=== PATIENT | male | born 1990 | race Caucasian/White ===

== ENCOUNTER 2017-08-29 10:28 | Inpatient (IN) | payer SELFPAY ==
[2017-08-29 13:29] VITALS: BP 116/67; PULSE 104; RESP 16; TEMP 100; O2SAT 95
[2017-08-29 13:45] VITALS: BP 134/82; PULSE 99; RESP 18; TEMP 98.6; O2SAT 97
[2017-08-29] MEDS ORDERED: SODIUM CHLOR 0.45% 1000 ML INJ 1,000 ML IV SCH (13:45)
[2017-08-29] MEDS ORDERED: RESP: ALBUTEROL 2.5 MG/3 ML NEB (PRN) NEB (13:45)
[2017-08-29] MEDS ORDERED: SODIUM CHLORIDE 0.9% FLUSH 10 ML FLUSH IV FLUSH PRN (13:45)
[2017-08-29 13:48] VITALS: BP 133/70; PULSE 96; RESP 16; TEMP 98.5; O2SAT 96
[2017-08-29] MEDS ORDERED: ACETAMINOPHEN 325 MG TAB PO PRN (14:00)
[2017-08-29] MEDS ORDERED: ONDANSETRON HCL 4 MG/2 ML VIAL IV PUSH PRN (14:00)
[2017-08-29] MEDS ORDERED: ALBUAER3 INH (14:03)
[2017-08-29] MEDS ORDERED: ALBU0.08 NEB (14:03)
[2017-08-29] MEDS: RESP: ALBUTEROL 2.5 MG/IPRATROPIUM 0.5 MG NEB (SCH) NEB ×3 (16:00→23:40)
--- NOTE | 2017-08-29 16:46 | HHI.HP ---
[facility] No Primary Care Physician Admission Diagnosis Diagnoses: Chief Complaint: Fever, Cough Travel History International Travel<30 Days: No Contact w/Intl Traveler <30 Da: No Traveled to Known Affected Are: No Sepsis Criteria SIRS Criteria (2 or more): Temp > 100.9 or < 96.8, WBC > 73514, < 4000 or > 10 % bands Sepsis Criteria (SIRS+source): Infect source susp/known History of Present Illness 26-year-old male with a medical history significant for asthma presented to the emergency room with complaint of fever, cough, malaise. Patient reports his symptoms started yesterday. He reports sick contact with a cousin who has had the flu. Evaluation in the emergency room revealed that he is positive for influenza A. The patient was also found to be hypoxemic with persistent wheezing despite breathing treatment and IV Solu-Medrol. Review of Systems Constitutional: COMPLAINS OF: Fever, Chills Respiratory: COMPLAINS OF: Cough, Wheezing, Shortness of breath Cardiovascular: DENIES: Chest pain Except as stated in HPI: all other systems reviewed are Neg Past Family Social History Past Medical History Asthma Past Surgical History None Reported Medications Reported Meds & Active Scripts Active Reported Albuterol Neb (Albuterol Sulfate) 2.5 Mg/3 Ml Neb 2.5 Mg NEB Q4HR NEB PRN Proair Hfa 8.5 GM Inh (Albuterol Sulfate) 90 Mcg/Act Aer 2 Puff INH Q4-6H PRN 108 mcg/actuation Allergies: Coded Allergies: No Known Allergies (Verified Allergy, Unknown, 08/29/17) Family History Discussed and is found to be noncontributory. Social History Patient denies using tobacco. Admits to occasional alcohol. Denies illicit drug use. Physical Exam Vital Signs Vital Signs Date Time Temp Pulse Resp B/P (MAP) Pulse Ox O2 Delivery O2 Flow Rate FiO2 08/29/17 13:48 98.5 96 16 133/70 (91) 96 Nasal Cannula 4.00 08/29/17 13:45 98.6 99 18 134/82 (99) 97 08/29/17 13:29 100.0 104 16 116/67 (66) 95 Physical Exam GENERAL: This is a well-nourished, well-developed patient, in no apparent distress. SKIN: No rashes, ecchymoses or lesions. Cool and dry. HEAD: Atraumatic. Normocephalic. No temporal or scalp tenderness. EYES: Pupils equal round and reactive. Extraocular motions intact. No scleral icterus. No injection or drainage. ENT: Nose without drainage. Throat without erythema, tonsillar hypertrophy or exudate. Uvula midline. Airway patent. NECK: Trachea midline. No JVD or lymphadenopathy. Supple, nontender, no meningeal signs. CARDIOVASCULAR: Regular rate and rhythm without murmurs, gallops, or rubs. RESPIRATORY: Air movement is adequate. There is faint diffuse expiratory wheezing. No rhonchi. GASTROINTESTINAL: Abdomen soft, non-tender, nondistended. No hepato-splenomegaly , or palpable masses. No guarding. MUSCULOSKELETAL: Extremities without clubbing, cyanosis, or edema. No joint tenderness, effusion, or edema noted. No calf tenderness. Negative Homans sign bilaterally. NEUROLOGICAL: Awake and alert. Cranial nerves II through XII intact. Motor and sensory grossly within normal limits. Five out of 5 muscle strength in all muscle groups. Normal speech. Imaging Chest x-ray personally reviewed. There are bilateral minimal basilar density. Caprini VTE Risk Assessment Caprini VTE Risk Assessment: No/Low Risk (score <= 1) Caprini Risk Assessment Model Point Value = 1 Point Value = 2 Point Value = 3 Point Value = 5 Age 41-60 Minor surgery BMI > 25 kg/m2 Swollen legs Varicose veins or History of unexplained or recurrent spontaneous Oral contraceptives or hormone replacement Sepsis (< 1 month) Serious lung disease, including pneumonia (< 1 month) Abnormal pulmonary function Acute myocardial infarction Congestive heart failure (< 1 month) History of inflammatory bowel disease Medical patient at bed rest Age 61-74 Arthroscopic surgery Major open surgery (> 45 min) Laparoscopic surgery (> 45 min) Malignancy Confined to bed (> 72 hours) Immobilizing plaster cast Central venous access Age >= 75 History of VTE Family history of VTE Factor V Leiden Prothrombin [id number] Lupus anticoagulant Anticardiolipin antibodies Elevated serum homocysteine Heparin-induced thrombocytopenia Other congenital or acquired thrombophilia Stroke (< 1 month) Elective arthroplasty Hip, pelvis, or leg fracture Acute spinal cord injury (< 1 month) Prophylaxis Regimen Total Risk Factor Score Risk Level Prophylaxis Regimen 0-1 Low Early ambulation 2 Moderate Order ONE of the following: *Sequential Compression Device (SCD) *Heparin 5000 units SQ BID 3-4 Higher Order ONE of the following medications: *Heparin 5000 units SQ TID *Enoxaparin/Lovenox 40 mg SQ daily (WT < 150 kg, CrCl > 30 mL/min) *Enoxaparin/Lovenox 30 mg SQ daily (WT < 150 kg, CrCl > 10-29 mL/min) *Enoxaparin/Lovenox 30 mg SQ BID (WT < 150 kg, CrCl > 30 mL/min) AND/OR *Sequential Compression Device (SCD) 5 or more Highest Order ONE of the following medications: *Heparin 5000 units SQ TID (Preferred with Epidurals) *Enoxaparin/Lovenox 40 mg SQ daily (WT < 150 kg, CrCl > 30 mL/min) *Enoxaparin/Lovenox 30 mg SQ daily (WT < 150 kg, CrCl > 10-29 mL/min) *Enoxaparin/Lovenox 30 mg SQ BID (WT < 150 kg, CrCl > 30 mL/min) AND *Sequential Compression Device (SCD) Assessment and Plan Problem List: (1) Influenza A with pneumonia ICD Code: J09.X1 - Influenza due to identified novel influenza A virus with pneumonia (2) SIDRA (acute kidney injury) ICD Code: N17.9 - Acute kidney failure, unspecified Assessment and Plan 26-year-old male admitted with influenza a with possible pneumonia, hypoxemia, asthma exacerbation. - Patient will be admitted for treatment with IV Solumedrol, Tamiflu. Antibiotics with Rocephin and azithromycin. - Breathing treatments. - Supplemental oxygen and wean off as tolerated. - He appears to be improving. If he continues to improve this quickly, he may be able to be transitioned to oral medications sooner rather than later. SIDRA: Likely related to above. Hydrate with IVF and reassess labs in AM. GI prophylaxis: Stool softener PRN constipation. DVT PPx: Patient is ambulatory, low risk Discussed Condition With Dr. Valdez Physician Certification 2 Midnight Certification Type: Admission for Inpatient Services Order for Inpatient Services The services are ordered in accordance with Medicare regulations or non- Medicare payer requirements, as applicable. In the case of services not specified as inpatient-only, they are appropriately provided as inpatient services in accordance with the 2-midnight benchmark. Estimated LOS (days): 2 days is the estimated time the patient will need to remain in the hospital, assuming treatment plan goals are met and no additional complications. Post-Hospital Plan: Home Meena Davila MD Aug 29, 2017 16:46
[2017-08-29] MEDS: methylPREDNISolone SOD SUCC 125 MG/2 ML VIAL IV PUSH SCH ×2 (18:39→22:20)
[2017-08-29 19:41] VITALS: BP 136/75; PULSE 93; RESP 18; TEMP 98.5; O2SAT 96
[2017-08-29 19:56] VITALS: O2SAT 97
[2017-08-29] MEDS: SODIUM CHLORIDE 0.9% FLUSH 10 ML FLUSH IV FLUSH SCH (22:20)
[2017-08-29 23:21] VITALS: BP 125/82; PULSE 83; RESP 18; TEMP 98.3; O2SAT 96
[2017-08-30] MEDS: RESP: ALBUTEROL 2.5 MG/IPRATROPIUM 0.5 MG NEB (SCH) NEB ×2 (03:34→07:46)
[2017-08-30 04:10] VITALS: BP 115/64; PULSE 110; RESP 18; TEMP 98.5; O2SAT 94
[2017-08-30] MEDS: methylPREDNISolone SOD SUCC 125 MG/2 ML VIAL IV PUSH SCH ×2 (04:18→10:11)
[2017-08-30 07:50] VITALS: BP 138/70; PULSE 89; RESP 18; TEMP 98; O2SAT 95
[2017-08-30 07:54] LABS: AUTOMATED NEUTROPHIL # 12.3 TH/MM3 (1.8-7.7); BASOPHIL % 0.1 % (0.0-2.0); HEMATOCRIT 43.4 % (39.0-51.0); LYMPH % 4.1 % (9.0-44.0); LYMPHOCYTE # 0.5 TH/MM3 (1.0-4.8); MEAN CELL VOLUME 90.2 FL (80.0-100.0); MEAN CORPUSCULAR HEMOGLOBIN 31.1 PG (27.0-34.0); MEAN CORPUSCULAR HGB CONC 34.5 % (32.0-36.0); MEAN PLATELET VOLUME 10.3 FL (7.0-11.0); MONO % 3.1 % (0.0-8.0); MONOCYTE # 0.4 TH/MM3 (0-0.9); NEUT % 92.7 % (16.0-70.0); PLATELET COUNT 130 TH/MM3 (150-450); RED BLOOD COUNT 4.81 MIL/MM3 (4.50-5.90); RED CELL DISTRIBUTION WIDTH 13.3 % (11.6-17.2); WHITE BLOOD COUNT 13.3 TH/MM3 (4.0-11.0)
[2017-08-30 08:05] LABS: BICARBONATE 25.8 MEQ/L (21.0-32.0); CALCIUM 8.9 MG/DL (8.5-10.1); CREATININE 0.86 MG/DL (0.60-1.30)
[2017-08-30] MEDS ORDERED: AZITHROMYCIN 250 MG TAB PO SCH (09:00)
[2017-08-30] MEDS ORDERED: cefTRIAXone INJ 1,000 MG in SODIUM CHLORIDE 0.9% INJ 100 ML IV SCH (09:00)
[2017-08-30] MEDS: SODIUM CHLORIDE 0.9% FLUSH 10 ML FLUSH IV FLUSH SCH (10:12)
[2017-08-30 11:09] VITALS: BP 119/78; PULSE 92; RESP 18; TEMP 97.3; O2SAT 94
[2017-08-30] MEDS ORDERED: AZIT250T3 PO (11:12)
--- NOTE | 2017-08-30 11:23 | HHI.PR ---
Subjective Remarks Follow-up visit influenza, asthma. Patient seen and examined today sitting in bed. Reports he is breathing much better and feeling much better. Denies pain and discomfort. Denies chest pain, palpitations, headaches, dizziness. Denies fevers, chills, n/v/d. Objective Vitals Vital Signs Date Time Temp Pulse Resp B/P (MAP) Pulse Ox O2 Delivery O2 Flow Rate FiO2 08/30/17 11:09 97.3 92 18 119/78 (92) 94 08/30/17 07:50 98.0 89 18 138/70 (92) 95 08/30/17 04:10 98.5 110 18 115/64 (81) 94 08/29/17 23:21 98.3 83 18 125/82 (96) 96 08/29/17 19:56 97 Nasal Cannula 4.00 08/29/17 19:41 98.5 93 18 136/75 (95) 96 08/29/17 13:48 98.5 96 16 133/70 (91) 96 Nasal Cannula 4.00 08/29/17 13:45 98.6 99 18 134/82 (99) 97 08/29/17 13:29 100.0 104 16 116/67 (83) 95 I/O 08/29/17 08/29/17 08/29/17 08/30/17 08/30/17 08/30/17 07:00 15:00 23:00 07:00 15:00 23:00 Intake Total 1000 ml Balance 1000 ml Intake IV Total 1000 ml Result Diagram: 08/30/17 0657 08/30/17 0657 Imaging Chest x-ray 08/29/17 A single view of the chest demonstrates minimal bibasilar densities. Heart normal in size The cardiomediastinal contours are unremarkable. Osseous structures are intact. Objective Remarks GENERAL: This is a well-nourished, well-developed patient, in no apparent distress. SKIN: Warm and dry HEENT: Normocephalic. Pupils equal round and reactive. Nose without bleeding. Airway patent. NECK: Trachea midline. CARDIOVASCULAR: Regular rate and rhythm without murmurs, gallops, or rubs. RESPIRATORY: Moderate wheezing. Moderate air entry. GASTROINTESTINAL: Abdomen soft, non-tender, nondistended. Bowel Sounds normoactive x4. MUSCULOSKELETAL: Extremities without clubbing, cyanosis, or edema. NEUROLOGICAL: Awake and alert. Oriented to time, place, person. No focal neuro deficit. Moves all extremities. Normal speech. A/P Problem List: (1) Influenza A with pneumonia ICD Code: J09.X1 - Influenza due to identified novel influenza A virus with pneumonia (2) SIDRA (acute kidney injury) ICD Code: N17.9 - Acute kidney failure, unspecified Assessment and Plan Patient is a 26-year-old male with primary medical history of asthma who came into the emergency room for complaints of fever, cough, generalized malaise. Influenza Possible pneumonia Asthma exacerbation - Patient was placed on Solu-Medrol IV, Tamiflu. Given antibiotics Rocephin and azithromycin - DuoNeb's - O2 as needed full weaning off. - Patient reports improved symptoms requesting to go home. Discussed with patient importance of medication compliance. We'll give an provide discounted medication as he does not have any insurance. - Discussed with patient extensively importance of handwashing and decreasing exposure to other people. When he is at home he can wear mask when surrounded by family members until completes medication. Follow-up with primary care doctor. [facility]. Acute kidney injury - Possibly from dehydration - IV fluid hydration - Repeat creatinine 0.86 DVT prop early ambulation Discharge patient to home Condition on discharge: Improved Regular Diet as tolerated Ad Jovanna activity Rx written: Tamiflu 75 mg twice a day 5 days Prednisone 20 g twice a day 5 days Azithromycin 500 mg daily 4 days Fluticasone inhaler 1 twice a day Follow-up with primary care physician - [facility] Discharge Planning Plan to discharge home today with medications. Follow-up with PCP recommended to see [facility]. Robert Covington Aug 30, 2017 11:23
[2017-08-30] MEDS ORDERED: OSEL75 PO (11:43)
[2017-08-30] MEDS ORDERED: FLUTI110I INH (11:48)
[2017-08-30] MEDS ORDERED: PRED20 PO (11:48)
[2017-08-30] MEDS ORDERED: FLUTICASONE PROPIONATE 110 MCG/ACT 12 GM INHALER INH SCH (12:00)
[2017-08-30] MEDS ORDERED: predniSONE 20 MG TAB PO SCH (12:00)
[2017-08-30] MEDS ORDERED: OSELTAMIVIR PHOSPHATE 75 MG CAP PO SCH (12:00)
== END 2017-08-30 16:42 | disposition home or self-care (01) | DRG 194 ==
LOC: NEPE 13:20 → NEDH 13:46 → NEDA 15:14 → NEPHCDU 17:01
PROVIDERS: ADMIT Hospitalist; ATTEND Hospitalist
DX: J10.00 Influenza due to other identified influenza virus with unspecified type of pneumonia (principal); N17.9 Acute kidney failure, unspecified; J45.901 Unspecified asthma with (acute) exacerbation; R09.02 Hypoxemia
CPT/HCPCS: 71045; 80048; 80053; 85025; 87804; 94150; 94640; 94664; 96365; 96375; J0456; J0696; J2930; J7050; J7512